=== PATIENT | female | born 1960 | race Asian ===

== ENCOUNTER 2024-08-07 07:52 | Day surgery (SDC) | payer OTHER, SELFPAY ==
[2024-08-06 10:06] VITALS: BMI 26.1
[2024-08-06 11:08] LABS: % Basophils 0.6 % (0-2); % Eosinophils 1.1 % (0-6); % Immature Granulocytes 0.2 % (0-0.5); % Lymphocytes 39.9 % (20.5-51.1); % Monocytes 10.2 % (1.7-9.3); Absolute Eosinophils 0.1 10^3/uL (0-0.7); Absolute Lymphocytes 2.2 10^3/uL (1.2-3.4); Absolute Monocytes 0.6 10^3/uL (0.1-0.6); Absolute Neutrophils 2.6 10^3/uL (1.4-6.5); Hematocrit 36.3 % (37.0-47.0); Hemoglobin 11.9 g/dL (12.0-16.0); Mean Corp Hgb Conc. 32.8 g/dL (33.0-37.0); Mean Corpuscular Hgb 29.8 pg (27.0-31.0); Mean Corpuscular Volume 90.8 fL (81.0-99.0); Mean Platelet Volume 11.5 fL (7.4-10.4); Nucleated Red Blood Cells % 0 %; Platelet Count 168 10^3/uL (130-400); Red Cell Dist. Width 14.3 % (11.5-14.5); White Blood Cell Count 5.4 10^3/uL (4.8-10.8)
[2024-08-06 11:12] LABS: ALT (SGPT) 20 U/L (0-35); AST (SGOT) 22 U/L (14-36); Alkaline Phosphatase 64 U/L (38-126); Blood Urea Nitrogen 18 mg/dl (7-17); Calcium 8.9 mg/dl (8.4-10.2); Carbon Dioxide 24 mmol/L (22-30); Estimated Creatinine Clearance 75 ml/min; Glucose 95 mg/dl (70-99); Magnesium 2.1 mg/dl (1.6-2.3); Potassium 3.6 mmol/L (3.5-5.1); Sodium 142 mmol/L (135-145); Total Bilirubin 0.8 mg/dl (0.2-1.3); Total Protein 6.7 g/dl (6.3-8.2); eGFR > 60.00
[2024-08-06 11:59] LABS: Chloride 112 mmol/L (98-107)
--- NOTE | 2024-08-06 12:30 | HPS.HSE ---
Family Physician
-
Family Physician: Yesika Pinedo
Chief Complaint
-
SVT
History of Present Illness
64yo female with rcurrent palpitations due to SVT. She is presently on Verapamil and wishes to pursue EP study as her symptoms are becoming more intense and frequent and include palpitations and shortness of breath.
Medical History
Past Medical History
Past Medical History: Reports Other (see below)
Additional Past Medical History:
SVT
HTN
GERD
Anxiety/depression
Colon CA-s/p resection, chemo >20years
Past Surgical History: Reports Other (see below)
Additional Past Surgical History:
bowel resection
GHASSAN
Social History
Tobacco: Non-smoker
Alcohol: None
Family History
Family History: Not pertinent
Allergies / Home Medications
Allergies reflects when Allergies were last updated in [facility].
Home Medications with original date entered in [facility]
Allergy/Medication List:
see list
Review of Systems
-
A 12 point ROS was completed and negative except as noted: Yes
Physical Exam
Physical Exam
General: Well Developed and Well Nourished
HEENT: NormoCephalic
Respiratory: Clear
Cardiac: S1/S2 and Regular Rhythm
GI: Soft, Non Tender and Normal Bowel Sounds
Musculoskeletal: No Edema
Skin: Dry
Neuro: AO x 3 and Cranial Nerves Intact
Laboratory Results
-
08/06/24 10:16
08/06/24 10:16
Laboratory Results
Total Bilirubin 0.8 mg/dl (0.2-1.3) 08/06/24 10:16
AST 22 U/L (14-36) 08/06/24 10:16
ALT 20 U/L (0-35) 08/06/24 10:16
Alkaline Phosphatase 64 U/L (38-126) 08/06/24 10:16
Impression/Plan
-
IMPRESSION/PLAN:
EP study, SVT ablation.
[2024-08-07] VITALS (17 sets, daily range): BP systolic 106–145; BP diastolic 65–79
[2024-08-07] MEDS: NSS 500 IV (08:59)
[2024-08-07] MEDS: TYLENOL 1000 MG PO (09:05)
--- NOTE | 2024-08-07 12:13 | ITS.CL.ABL ---
Meeting Coordinator - Ablation
Ablation
Procedure Report:
ELECTROPHYSIOLOGY ABLATION REPORT
Date of Procedure: August 07, 2024
Referring: Dr. Rayo Bocanegra
INDICATION: Narrow complex tachycardia
HISTORY: As above
PROCEDURE:
Baseline intracardiac measurements were obtained in sinus rhythm.��HRA, HIS, RVA and CS catheters were placed. 3D mapping with ERICA.
Atrial decremental extrastimuli were delivered from the HRA and the CS.��Single and double extrastimuli as well as burst pacing were performed from both sites in both the baseline state and with isoproterenol infusion.��Atrial and AVN antegrade
ERP�s were determined.��Antegrade as well as retrograde AVN [place] CL�s were determined.
MEASUREMENTS:
BASELINE
A-A:�800 ms
P-P:���800 ms
A-H:�86 ms
H-V����54 ms
P-R:���140 ms
QRS:�380 ms
QT:����Less than 450 ms
SNRT: Normal at 600 ms
AVN Wenckebach: 390 ms
AVN Fast Pathway ERP: 600�3 80 ms
AVN Slow Pathway ERP: 600�3 60 ms
HIS-Purkinje System: Normal; no distal block
Retrograde Conduction Decremental, Retrograde Block 420 ms
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
ventricular pacing from the RVA showed earliest retrograde atrila activation at the fast pathway position along the decapolar CS catheter, matching that seen during SVT, (3) Atrial activation during SVT began after the first 80ms of the QRS complex,
(4) Initiation of SVT was not dependent on a critical AH interval (slow pathway engagement), (5) Ventricular pacing at a CL 20-30 ms faster than the SVT CL during the SVT demonstrated advancement of the atrial electrogram to the pacing CL and when
pacing was terminated, a V-A-V pattern with continuation of SVT was observed practically excluding AT as the SCT mechanism, (6) premature ventricular extrastimuli delivered during SVT (at the time of HIS refractoriness) were able to to effect
advancement of the timing of subsequent atrial activation during SVT, (7) A VPD during SVT was able to terminate SVT without subsequent atrial activation., when delivered during HIS refractoriness.
SVT was initiated by atrial extrastimuli
SVT could be terminated by ventricular overdrive pacing
The SVT cycle length was 410 ms.; SVT was well-tolerated hemodynamically.
Radiofrequency Catheter Ablation:
Following determination of the SVT mechanism, baseline conditions were resumed.��
RF applications were delivered during ventricular pacing using a temperature controlled system.��RF application resulted in nearly immediate (4�6 seconds) junctional beats which were somewhat rapid. There was a tight window between rapid junctional
beats and no junctional beats and the overall triangle was extremely diminutive.��A 4 mm tip RF catheter was used with the maximum power��set to 50 W and the maximum temperature set to 52�degrees C.
After a 20 minute waiting period, stimulation was repeated.��Midline retrograde activation was preserved during RV apical stimulation.
No sustained SVT was induced, a marked contrast to the pre-ablation situation.
COMPLICATIONS: None
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
RECOMMENDATIONS:
1. Discontinue verapamil
2. Out of bed in 4 hours and consider same-day discharge
== END 2024-08-07 16:40 | disposition home or self-care (01) ==
LOC: CATH 07:52
PROVIDERS: ATTENDING PHYSICIAN Internal Medicine Cardiovascular Disease; FAMILY PHYSICIAN Internal Medicine; OTHER PHYSICIAN Internal Medicine Cardiovascular Disease
DX: I47.10 Supraventricular tachycardia, unspecified (principal); R00.2 Palpitations; I10 Essential (primary) hypertension; K21.9 Gastro-esophageal reflux disease without esophagitis; F41.9 Anxiety disorder, unspecified; F32.A Depression, unspecified; Z85.038 Personal history of other malignant neoplasm of large intestine
CPT/HCPCS: C1730; C1894; C1766; C1733; 36415; 80053; 83735; 85025; 93005; 93653